=== PATIENT | female | born 1975 | race Caucasian/White ===

== ENCOUNTER 2022-01-31 11:44 | Emergency (ER) | payer MEDICAID, SELFPAY ==
--- NOTE | 2022-01-31 12:20 | ED.NURSE ---
[employer] Chemist went to triage patient and she is no longer in lobby. Per registration staff, patient signed ROS form.
== END 2022-01-31 12:21 | disposition left against medical advice (07) ==
PROVIDERS: Emergency Provider Family Medicine
DX: Z53.29 Procedure and treatment not carried out because of patient's decision for other reasons (principal)
CPT/HCPCS: 99281

== ENCOUNTER 2023-12-03 06:44 | Outpatient (CLI) | payer MEDICAID, SELFPAY ==
[2023-12-03 07:19] VITALS: BP 119/67; PULSE 67; RESP 16; O2SAT 96
[2023-12-03 07:58] VITALS: BP 121/69; PULSE 56; RESP 16; O2SAT 96
== END 2023-12-03 08:17 | disposition home or self-care (01) ==
LOC: OP CLINIC 06:45 → RAD 07:08
PROVIDERS: Visit Provider Family Medicine
DX: M76.899 Other specified enthesopathies of unspecified lower limb, excluding foot (principal); M67.80 Other specified disorders of synovium and tendon, unspecified site
CPT/HCPCS: 27006; 76942; J0665